=== PATIENT | male | born 1950 | race Caucasian/White ===

== ENCOUNTER 2016-07-20 18:25 | Emergency (ER) | payer OTHER ==
[~2016-07-20] VITALS: Ht 170.2 cm; Wt 69.6 kg
[~2016-07-20 18:25] MED LIST: CYCL10TA6 PO; TRAZ50TA35 PO
[2016-07-20 18:29] VITALS: Ht 170.2 cm; Wt 69.6 kg
[2016-07-20] MEDS ORDERED: CEFTRIAXONE SOD INJ 1 GM ADDVIAL IV STA (18:52)
[2016-07-20] MEDS ORDERED: SODIUM CHLORIDE 0.9% 1000ML 1,000 ML IV STA (18:52)
[2016-07-20] MEDS ORDERED: ONDANSETRON INJ 2 MG/ML 2 ML VIAL IV STA (18:52)
[2016-07-20] MEDS ORDERED: MoRPHine SULFATE 10 MG/ML CARP/VIAL IV STA (18:52)
[2016-07-20] MEDS ORDERED: VANCOMYCIN 1GM/270ML NSS IV STA (18:52)
--- NOTE | 2016-07-20 18:58 | EMERGENCY ROOM VISIT NOTE ---
History Report prepared by Shree: Breanna Rodriguez Under the Supervision of: Dr. Taye Alonso M.D. First contact with patient: 18:46 Chief Complaint: EYE PAIN Stated Complaint: RT EYE History of Present Illness The patient is a 65 year old male who presents to the Emergency Room with complaints of persistent, worsening right eye discomfort that began one week ago. He currently rates his discomfort as a 10/10 in severity. The patient states that 1 week ago he noticed his right eye becoming itchy. He additionally notes erythema and edema to his right eye. The patient states that he has tried ice for his pain without relief. He [facility] for his symptoms. The patient states that he had a follow up appointment today at 1300 and states that he did not see a physician. He notes pain with movement of his eye to the right. The patient associates pain in his cheek bone and a right sided headache. Source of History: patient Onset: one week ago Position: eye (right) Symptom Intensity: 10/10 Timing: worsening, other (persistent) Modifying Factors (Worsening): movement (right eye to the right) Associated Symptoms: + headache (right side) Note: Associated Symptoms: erythema and edema to right eye, pain in right cheek bone Review of Systems See HPI for pertinent positives & negatives. A total of 10 systems reviewed and were otherwise negative. Past Medical & Surgical Medical Problems: (1) Corneal abrasion, right (2) Fall (3) Head injury (4) Laceration (5) No Known Active Medical Problems (6) Periapical abscess Family History Diabetes mellitus Heart disease Social History Smoking Status: Current Every Day Smoker Alcohol Use: occasionally Marital Status: single Housing Status: lives alone Occupation Status: employed Current/Historical Medications Scheduled Cephalexin Monohydrate (Keflex), 500 MG PO QID Clindamycin HCl (Clindamycin HCl), 300 MG PO Q8 Metoprolol Tartrate (Lopressor) (Lopressor), 50 MG PO BID Sulfa/Trimethoprim (Bactrim Ds 800MG/160MG), 1 TAB PO BID Scheduled PRN Cyclobenzaprine Hcl (Flexeril), 10 MG PO BID PRN for Muscle Spasms Trazodone Hcl (Trazodone), 50 MG PO HS PRN for prn Allergies Coded Allergies: Ibuprofen (Unverified Allergy, Severe, RED SPOTS ON SKIN, ITCHY, 07/20/16) Codeine (Verified Allergy, Unknown, 07/20/16) Methadone (Verified Allergy, Unknown, 07/20/16) Oxycodone (Verified Allergy, Unknown, 07/20/16) Penicillins (Verified Allergy, Unknown, 07/20/16) Propoxyphene (Verified Allergy, Unknown, 07/20/16) Physical Exam Vital Signs Date Time Temp Pulse Resp B/P Pulse Ox O2 Delivery O2 Flow Rate FiO2 07/20/16 22:12 37.2 81 17 128/66 94 07/20/16 22:11 81 17 128/66 94 Room Air 07/20/16 20:04 80 17 132/68 94 Room Air 07/20/16 18:29 37.2 82 17 148/79 94 Room Air Physical Exam GENERAL: Patient is a healthy-appearing well-nourished HEAD: Normocephalic atraumatic EYES: Area of redness around right orbital area. Pain with movement of the eye to the right. No scleral injection. Ocular movements intact pupils equal and react to light OROPHARYNX mucous membranes are moist no exudates present no erythema or edema present NECK: Supple no nuchal rigidity CHEST: Good equal expansion LUNGS: Clear and equal to auscultation CARDIAC: Normal S1 and S2 ABDOMEN: Soft nontender no guarding BACK: No CVA tenderness EXTREMITIES: No pain upon palpation normal muscle strength in all groups no clubbing cyanosis or edema NEURO: Patient is following commands is answering questions appropriately. Alert and oriented x3 Cranial Nerves 2-12 grossly intact Medical Decision & Procedures ER Provider Diagnostic Interpretation: CT results as stated below per my review and radiologist interpretation: CT SCAN OF THE OF THE ORBITS WITH IV CONTRAST CLINICAL HISTORY: Right eye pain and erythema. Swelling. No reported history of trauma. COMPARISON STUDY: CT scan of the neck dated 06/13/2009. TECHNIQUE: High-resolution CT scan of the orbits is performed following the IV administration of 115 cc of Optiray 320. Images are reviewed in the axial, sagittal, and coronal planes. IV contrast was administered without complication. CT DOSE: 95.77 mGy.cm FINDINGS: The skeletal structures are osteopenic. The bony orbits are intact. There is right periorbital and premalar soft tissue induration. No organized fluid collection is seen to suggest abscess. The orbital contents are within normal limits. There is no evidence of intraoral extraconal mass lesion. The extraocular musculature is normal and symmetric. The imaged brain parenchyma is within normal limits. [id number] mucosal thickening is seen within the maxillary antra. Mild mucosal thickening is also seen within the frontal and ethmoid sinuses. Trace mucosal thickening is seen in the sphenoid sinuses. There are bilateral mastoid effusions, right larger than left. There is advanced periodontal disease identified. There are large periapical lucencies involving the posterior maxillary molars bilaterally with associated cortical breakthrough. Additional periapical lucencies are seen involving the left central maxillary incisor and the left maxillary canine. Numerous caries are identified. The internal jugular veins and internal carotid arteries are clear as imaged. IMPRESSION: 1. Findings are consistent with mild right periorbital cellulitis. There is no organized fluid collection to suggest abscess. 2. The bony orbits are intact and the orbital contents are within normal limits. There is no convincing evidence of orbital sialitis. 3. Severe periodontal disease with numerous dental caries, as well as numerous periapical lucencies with associated cortical breakthrough. Follow-up with dentistry is recommended. 4. Paranasal sinus disease as above. Electronically signed by: Wesley Osborn M.D. 07/20/2016 8:45 PM Dictated Date/Time: 07/20/2016 8:37 PM Laboratory Results 07/20/16 19:20 Red Blood Count 4.54, Mean Corpuscular Volume 95.2, Mean Corpuscular Hemoglobin 32.8, Mean Corpuscular Hemoglobin Concent 34.5, Mean Platelet Volume 9.9, Neutrophils (%) (Auto) 49.0, Lymphocytes (%) (Auto) 30.5, Monocytes (%) (Auto) 9.0, Eosinophils (%) (Auto) 11.0, Basophils (%) (Auto) 0.3, Neutrophils # (Auto ) 4.66, Lymphocytes # (Auto) 2.91, Monocytes # (Auto) 0.86, Eosinophils # (Auto ) 1.05, Basophils # (Auto) 0.03 07/20/16 19:20 Test 07/20/16 19:20 07/20/16 19:56 White Blood Count 9.53 K/uL (4.8-10.8) Red Blood Count 4.54 M/uL (4.7-6.1) Hemoglobin 14.9 g/dL (14.0-18.0) Hematocrit 43.2 % (42-52) Mean Corpuscular Volume 95.2 fL (80-100) Mean Corpuscular Hemoglobin 32.8 pg (25-34) Mean Corpuscular Hemoglobin Concent 34.5 g/dl (32-36) Platelet Count 333 K/uL (130-400) Mean Platelet Volume 9.9 fL (7.4-10.4) Neutrophils (%) (Auto) 49.0 % Lymphocytes (%) (Auto) 30.5 % Monocytes (%) (Auto) 9.0 % Eosinophils (%) (Auto) 11.0 % Basophils (%) (Auto) 0.3 % Neutrophils # (Auto) 4.66 K/uL (1.4-6.5) Lymphocytes # (Auto) 2.91 K/uL (1.2-3.4) Monocytes # (Auto) 0.86 K/uL (0.11-0.59) Eosinophils # (Auto) 1.05 K/uL (0-0.5) Basophils # (Auto) 0.03 K/uL (0-0.2) RDW Standard Deviation 44.6 fL (36.4-46.3) RDW Coefficient of Variation 12.9 % (11.5-14.5) Immature Granulocyte % (Auto) 0.2 % Immature Granulocyte # (Auto) 0.02 K/uL (0.00-0.02) Est Creatinine Clear Calc Drug Dose 58.9 ml/min Estimated GFR () 74.1 Estimated GFR (Non- 64.0 BUN/Creatinine Ratio 12.1 (10-20) Calcium Level 10.1 mg/dl (8.5-10.1) Bedside Hemoglobin 15.6 g/dl (14.0-18.0) Bedside Hematocrit 46 % (42-52) Bedside Sodium 140 mEq/L (135-144) Bedside Potassium 4.0 mEq/L (3.3-5.0) Bedside Chloride 100 mEq/L (101-112) Bedside Total CO2 27 mEq/l (24-31) Anion Gap 18.0 mmol/L (16-25) Bedside Blood Urea Nitrogen 15 mg/dl (7-18) Bedside Creatinine 1.1 mg/dl (0.6-1.3) Bedside Glucose (other) 100 mg/dl (70-99) Bedside Ionized Calcium (Priscilla) 1.23 mmol/l (1.12-1.32) Labs reviewed by ED physician. Medications Administered Medications (Trade) Dose Ordered Sig/Alicia Route Start Time Stop Time Status Last Admin Dose Admin Sodium Chloride (Nss 1000ml) 1,000 ml @ 999 mls/hr Q1H1M STAT IV 07/20/16 18:52 07/20/16 19:52 DC 07/20/16 19:32 999 MLS/HR Ceftriaxone Sodium (Rocephin Inj) 1 gm NOW STAT IV 07/20/16 18:52 07/20/16 18:57 DC 07/20/16 19:33 1 GM Vancomycin HCl (Vancomycin 1gm/ 270ml Nss) 1 gm NOW STAT IV 07/20/16 18:52 07/20/16 18:57 DC 07/20/16 19:35 1 GM Ondansetron HCl (Zofran Inj) 4 mg NOW STAT IV 07/20/16 18:52 07/20/16 18:57 DC 07/20/16 19:33 4 MG Acetaminophen (Tylenol Tab) 1,000 mg NOW STAT PO 07/20/16 19:13 07/20/16 19:15 DC 07/20/16 19:39 1,000 MG ED Course 1847: Past medical records reviewed. The patient was evaluated in room B9. A complete history and physical examination was performed. 1851: Ordered Zofran Inj 4 mg IV, Vancomycin HCl 1 gm IV, Rocephin Inj 1 gm IV, Sodium Chloride 1000 ml @ 999 mls/hr IV. 1912: Ordered Tylenol Tab 1000 mg PO. 4: I reevaluated the patient and he is resting comfortably. I discussed the exam findings with him and I discussed the treatment plan. He verbalized complete understanding and agreement. He will be evaluated for further treatment. 5: Per nursing staff, the patient is refusing to stay for further evaluation and treatment. He will be leaving against medical advice. Medical Decision Differential diagnosis: Etiologies such as cellulitis, abscess, MRSA infection, DVT, necrotizing fasciitis, dermatitis, drug eruption, as well as others were entertained. This is a 65-year-old male who presents emergency department complaining of saline is run his right eye. The patient has been taking clindamycin for the past 3 days without improvement. The patient reports it hurts when he moves his eye. Based on this finding I strongly recommended to the patient that he be admitted to the hospital. He was pancultured and started on Rocephin along with vancomycin. CT of the orbits is concerning for periorbital cellulitis. I discussed my findings with the patient and again strongly recommended he be admitted to the hospital however he is decided to sign out AGAINST MEDICAL ADVICE. I will place the patient on both Keflex as well as Bactrim. The patient has demonstrated no significant defect in the decision-making capacity to make choices. The encounter had a good level of communication with language the patient can easily understand. I feel trust was present and conveyed that our action/intentions were the best interest of the patient. The patient was given all relevant information and reiterated the explained risks and benefits. The patient explained the reasoning for refusing treatment clearly. The patient possesses and expresses a set of values and goals, the ability to communicate and understand, and an ability to reason and deliberate. Despite acting emphatically, attentively and with the utmost patient's the patient declined further treatment. I offered options, negotiated, and explored every reasonable choice. I must respect the patient's autonomy and that they feel that their choices are best for them despite the associated risks of leaving without completing the evaluation. The patient was informed about the findings as listed above. All questions were answered and he was pleased with the treatment. Return instructions were outlined and the patient was discharged in stable condition. Impression Primary Impression: Periorbital cellulitis of right eye Scribe Attestation The scribe's documentation has been prepared under my direction and personally reviewed by me in its entirety. I confirm that the note above accurately reflects all work, treatment, procedures, and medical decision making performed by me. Departure Information Dispostion Home / Self-Care Prescriptions Sulfa/Trimethoprim (Bactrim Ds 800MG/160MG) Tab 1 TAB PO BID for 10 Days, #20 TAB Prov: Taye Alonso MD 07/20/16 Cephalexin Monohydrate (KEFLEX) 500 Mg Cap 500 MG PO QID for 10 Days, #40 CAP Prov: Taye Alonso MD 07/20/16 Referrals No Doctor, Assigned (PCP) Arnaldo Geronimo M.D. Shunk, Brian R.,D.O. Forms HOME CARE DOCUMENTATION FORM, IMPORTANT VISIT INFORMATION, WORK / SCHOOL INSTRUCTIONS Patient Instructions Cellulitis - [facility], My [facility] Additional Instructions Follow up with DR Geronimo's office You have been examined and treated today on an emergency basis only. This is not a substitute for, or an effort to provide, complete comprehensive medical care. It is impossible to recognize and treat all injuries or illnesses in a single emergency department visit. It is therefore important that you follow up closely with Dr Webber. Call as soon as possible for an appointment. Thank you for your time and consideration. I look forward to speaking with you again soon. Please don't hesitate to call us if you have any questions.
[2016-07-20] MEDS ORDERED: OPTIRAY 320 IV PRN (19:00)
[2016-07-20] MEDS ORDERED: MoRPHine SULFATE 4 MG/ML 1 ML CARP\\VIAL ONE (19:08)
[2016-07-20] MEDS ORDERED: ACETAMINOPHEN 500 MG TAB PO STA (19:13)
[2016-07-20] MEDS ORDERED: CLC/300 PO (19:17)
[2016-07-20] MEDS ORDERED: METO50TA16 PO (19:17)
[2016-07-20 20:00] LABS: BASO % 0.3 %; BASO ABS # 0.03 K/uL (0-0.2); COMPLETE YES; HEMATOCRIT 43.2 % (42-52); IG% 0.2 %; LYMPH % 30.5 %; LYMPH ABS # 2.91 K/uL (1.2-3.4); MEAN CELL VOLUME 95.2 fL (80-100); MEAN CORPUSCULAR HEMOGLOBIN 32.8 pg (25-34); MEAN CORPUSCULAR HGB CONC 34.5 g/dl (32-36); MEAN PLATELET VOLUME 9.9 fL (7.4-10.4); PLATELET COUNT 333 K/uL (130-400); RED BLOOD COUNT 4.54 M/uL (4.7-6.1); WHITE BLOOD COUNT 9.53 K/uL (4.8-10.8)
[2016-07-20 20:13] LABS: ISTAT CREATININE 1.1 mg/dl (0.6-1.3); ISTAT HEMOGLOBIN 15.6 g/dl (14.0-18.0); ISTAT IONIZED CALCIUM 1.23 mmol/l (1.12-1.32)
[2016-07-20 20:17] LABS: BUN/CREATININE RATIO 12.1 (10-20); CALCIUM 10.1 mg/dl (8.5-10.1); CREATININE 1.2 mg/dl (0.60-1.40); POTASSIUM 4.1 mmol/L (3.5-5.1)
--- NOTE | 2016-07-20 20:46 | DIAGNOSTIC IMAGING REPORT ---
CT SCAN OF THE OF THE ORBITS WITH IV CONTRAST CLINICAL HISTORY: Right eye pain and erythema. Swelling. No reported history of trauma. COMPARISON STUDY: CT scan of the neck dated 06/13/2009. TECHNIQUE: High-resolution CT scan of the orbits is performed following the IV administration of 115 cc of Optiray 320. Images are reviewed in the axial, sagittal, and coronal planes. IV contrast was administered without complication. CT DOSE: 95.77 mGy.cm FINDINGS: The skeletal structures are osteopenic. The bony orbits are intact. There is right periorbital and premalar soft tissue induration. No organized fluid collection is seen to suggest abscess. The orbital contents are within normal limits. There is no evidence of intraoral extraconal mass lesion. The extraocular musculature is normal and symmetric. The imaged brain parenchyma is within normal limits. Ckax-ri-faywdyfi mucosal thickening is seen within the maxillary antra. Mild mucosal thickening is also seen within the frontal and ethmoid sinuses. Trace mucosal thickening is seen in the sphenoid sinuses. There are bilateral mastoid effusions, right larger than left. There is advanced periodontal disease identified. There are large periapical lucencies involving the posterior maxillary molars bilaterally with associated cortical breakthrough. Additional periapical lucencies are seen involving the left central maxillary incisor and the left maxillary canine. Numerous caries are identified. The internal jugular veins and internal carotid arteries are clear as imaged. IMPRESSION: 1. Findings are consistent with mild right periorbital cellulitis. There is no organized fluid collection to suggest abscess. 2. The bony orbits are intact and the orbital contents are within normal limits. There is no convincing evidence of orbital sialitis. 3. Severe periodontal disease with numerous dental caries, as well as numerous periapical lucencies with associated cortical breakthrough. Follow-up with dentistry is recommended. 4. Paranasal sinus disease as above. Electronically signed by: Wesley Osborn M.D. 07/20/2016 8:45 PM Dictated Date/Time: 07/20/2016 8:37 PM
[2016-07-20] MEDS ORDERED: SULF800T23 PO (21:35)
[2016-07-20] MEDS ORDERED: CEPH500C2 PO (21:35)
[2016-07-20 22:12] VITALS: BP 128/66; PULSE 81; TEMP 37.2; O2SAT 94
== END 2016-07-20 22:13 | disposition left against medical advice (07) ==
LOC: C.EDB 18:26
DX: L03.213 Periorbital cellulitis (principal); F17.210 Nicotine dependence, cigarettes, uncomplicated; Z83.3 Family history of diabetes mellitus; Z79.899 Other long term (current) drug therapy